=== PATIENT | male | born 1995 | race Caucasian/White ===

== ENCOUNTER 2017-05-05 11:12 | Emergency (ER) | payer OTHER ==
[~2017-05-05] VITALS: Ht 185.4 cm; Wt 83.3 kg
[2017-05-05 11:23] VITALS: BP 136/85
== END 2017-05-05 12:27 | disposition home or self-care (01) ==
LOC: ED 12:21
DX: B37.9 Candidiasis, unspecified (principal); F12.10 Cannabis abuse, uncomplicated
CPT/HCPCS: 99283